=== PATIENT | male | born 1965 ===

== ENCOUNTER 2021-04-09 15:10 | Inpatient (IN) | payer OTHER ==
[~2021-04-09] VITALS: Ht 177.8 cm; Wt 93.4 kg
[2021-04-09 17:55] LABS: Basophils # (auto) 0 10 ^3/uL (0-0.2); Basophils % (auto) 0.4 % (0.0-2.0); Eosinophils # (auto) 0 10 ^3/uL (0-0.8); Eosinophils % (auto) 0.6 % (0.0-7.0); Hematocrit 40.1 % (41.0-53.0); Hemoglobin 14.1 g/dL (13.5-17.5); Lymphocytes # (auto) 1.7 10 ^3/uL (0.4-5.4); Lymphocytes % (auto) 19.3 % (10.0-50.0); Mean Corpuscular Hemoglobin 32.1 pg (28.0-32.0); Mean Corpuscular Hgb Conc. 35.1 g/dL (32.0-36.0); Mean Corpuscular Volume 91.5 fL (80.0-100.0); Monocytes # (auto) 0.9 10 ^3/uL (0-1.3); Monocytes % (auto) 10.1 % (0.0-12.0); Neutrophils # (auto) 6.2 10 ^3/uL (1.6-8.6); Neutrophils % (auto) 69.6 % (37.0-80.0); Nucleated Red Blood Cells % 0.1 %; Red Blood Cells 4.38 10^6/uL (4.5-5.90); Red Cell Distribution Width 13.4 % (11.8-14.3); White Blood Cell 8.9 10^3/uL (4.4-10.8)
[2021-04-09 18:10] LABS: Albumin 3.7 g/dL (3.4-5.0); BUN/Creatinine Ratio 19.3; Calcium 8.4 mg/dL (8.5-10.1); Potassium 3.7 mmol/L (3.5-5.1)
[2021-04-09 18:13] LABS: Bilirubin, Total 0.8 mg/dL (0.2-1.0); Total Protein 6.8 g/dL (6.4-8.2)
[2021-04-09] MEDS ORDERED: NITROGLYCERIN 0.4 MG SL TAB SL PRN (20:30)
[2021-04-09] MEDS ORDERED: MORPHINE SULFATE INJECTION 2 MG/ML SYRG IV PRN (20:30)
[2021-04-09] MEDS: HYDROcodone-ACET 10/325MG TAB PO PRN (21:18)
[2021-04-09 23:29] VITALS: BP 126/58
[2021-04-09 23:30] VITALS: BP 126/58
[2021-04-10] MEDS: HYDROcodone-ACET 10/325MG TAB PO PRN ×2 (01:26→22:15)
[2021-04-10 02:10] LABS: Basophils # (auto) 0.1 10 ^3/uL (0-0.2); Basophils % (auto) 0.8 % (0.0-2.0); Eosinophils # (auto) 0.1 10 ^3/uL (0-0.8); Eosinophils % (auto) 1.4 % (0.0-7.0); Hemoglobin 14.3 g/dL (13.5-17.5); Lymphocytes # (auto) 2.2 10 ^3/uL (0.4-5.4); Lymphocytes % (auto) 25.2 % (10.0-50.0); Mean Corpuscular Hemoglobin 31.6 pg (28.0-32.0); Mean Corpuscular Hgb Conc. 34.1 g/dL (32.0-36.0); Mean Corpuscular Volume 92.7 fL (80.0-100.0); Monocytes # (auto) 0.8 10 ^3/uL (0-1.3); Monocytes % (auto) 9.2 % (0.0-12.0); Neutrophils # (auto) 5.5 10 ^3/uL (1.6-8.6); Neutrophils % (auto) 63.4 % (37.0-80.0); Red Blood Cells 4.53 10^6/uL (4.5-5.90); Red Cell Distribution Width 13.8 % (11.8-14.3); White Blood Cell 8.7 10^3/uL (4.4-10.8)
[2021-04-10 02:28] LABS: INR 1.04 (0.9-1.15); Partial Thromboplastin Time 28.8 sec (23.6-33.0)
[2021-04-10 05:29] VITALS: BP 122/73
[2021-04-10 08:00] VITALS: BP 119/61
[2021-04-10] MEDS ORDERED: ceFAZolin 2 GM in D5W 5% 100 ML IV ONE (09:00)
[2021-04-10] MEDS ORDERED: IOHEXOL 300 MG/ML 100ML BOTTLE IJ ONE (10:30)
[2021-04-10] MEDS ORDERED: LIDOCAINE 2% JELLY 11ml (GLYDO) ONE (10:30)
[2021-04-10 10:39] LABS: Urine WBC None Seen /hpf (0 - 3)
[2021-04-10 11:19] LABS: Urine Bacteria NONE SEEN /hpf (None Seen); Urine Blood Negative /uL (Negative); Urine Specific Gravity 1.015 (1.001-1.035)
[2021-04-10] MEDS ORDERED: METOCLOPRAMIDE HCL 5MG/ml INJ 2ml VIAL IV PRN (12:15)
[2021-04-10] MEDS ORDERED: HYDROmorphone HCL 2 MG/ML VL IV PRN (12:15)
[2021-04-10] MEDS ORDERED: MORPHINE SULFATE 4 MG/ML SYR/VIAL IV PRN (12:15)
[2021-04-10] MEDS ORDERED: SODIUM CHLORIDE LOCK 10 ML ONE (12:16)
[2021-04-10] MEDS ORDERED: fentaNYL CITRATE 100 MCG/2 ML VL ONE (12:16)
[2021-04-10] MEDS ORDERED: ONDANSETRON HCL 4 MG/2 ML VIAL ONE (12:16)
[2021-04-10] MEDS ORDERED: MIDAZOLAM HCL 2MG/2ML 2ml VIAL (1mg/ml) ONE (12:16)
[2021-04-10] MEDS ORDERED: PROPOFOL 10 MG/ML 20 ML IV ONE (12:16)
[2021-04-10] MEDS ORDERED: DexAMETHasone SOD PHOS 10MG/1ML VIAL INJ ONE (12:50)
[2021-04-10] MEDS ORDERED: LIDOCAINE 1% HCL (LOCAL ANESTH.) INJ 20ML MDV ONE (12:56)
[2021-04-10 16:00] VITALS: BP 106/50
[2021-04-10 20:00] VITALS: BP 105/52
[2021-04-10 22:00] VITALS: BP 119/41
[2021-04-10] MEDS: ceFAZolin 1GM/50ML 50 ML IV SCH (22:14)
[2021-04-11 05:00] VITALS: BP 105/64
[2021-04-11] MEDS: ceFAZolin 1GM/50ML 50 ML IV SCH (05:47)
[2021-04-11 09:00] VITALS: BP 138/54
[2021-04-11 13:00] VITALS: BP 106/56
[2021-04-11 15:20] VITALS: BP 106/56
== END 2021-04-11 15:55 | DRG 710 ==
LOC: ER 15:10 → EEVIPCON 15:10 → OVERFLOW 20:16 → WEST WING 22:15
PROVIDERS: ADMIT Internal Medicine; ATTEND Internal Medicine
PROC: 0TJB8ZZ Inspection of Bladder, Via Natural or Artificial Opening Endoscopic (ICD-10-PCS; 2021-04-10)
PROC: 0VCS0ZZ Extirpation of Matter from Penis, Open Approach (ICD-10-PCS; principal; 2021-04-10 12:32)
DX: T19.4XXA Foreign body in penis, initial encounter (principal); N48.22 Cellulitis of corpus cavernosum and penis; Z20.822 Contact with and (suspected) exposure to COVID-19; Y99.8 Other external cause status; X58.XXXA Exposure to other specified factors, initial encounter; Y92.89 Other specified places as the place of occurrence of the external cause; Y93.89 Activity, other specified
CPT/HCPCS: 36415; 71045; 72192; 80053; 81001; 85025; 85610; 85730; 87426; 96365; G0378; J0690; J1100; J2001; J2250; J2405; J2704; J7060

== ENCOUNTER 2021-04-23 17:56 | Inpatient (IN) | payer OTHER ==
[~2021-04-23] VITALS: Ht 177.8 cm; Wt 92.9 kg
[2021-04-23] MEDS ORDERED: PIPERACILLIN-TAZOB 3.375GM 100 ML IV ONE (18:45)
[2021-04-23] MEDS ORDERED: VANCOMYCIN 1GM/250ML 250 ML IV ONE (18:45)
[2021-04-23 19:19] LABS: Basophils # (auto) 0.1 10 ^3/uL (0-0.2); Basophils % (auto) 0.7 % (0.0-2.0); Eosinophils # (auto) 0 10 ^3/uL (0-0.8); Eosinophils % (auto) 0.5 % (0.0-7.0); Hematocrit 40.5 % (41.0-53.0); Hemoglobin 14.1 g/dL (13.5-17.5); Lymphocytes # (auto) 1.4 10 ^3/uL (0.4-5.4); Mean Corpuscular Hemoglobin 31.9 pg (28.0-32.0); Mean Corpuscular Hgb Conc. 34.8 g/dL (32.0-36.0); Mean Corpuscular Volume 91.6 fL (80.0-100.0); Monocytes # (auto) 0.6 10 ^3/uL (0-1.3); Monocytes % (auto) 7.4 % (0.0-12.0); Neutrophils # (auto) 6.2 10 ^3/uL (1.6-8.6); Neutrophils % (auto) 74.4 % (37.0-80.0); Nucleated Red Blood Cells % 0.3 %; Red Blood Cells 4.42 10^6/uL (4.5-5.90); Red Cell Distribution Width 13.8 % (11.8-14.3); White Blood Cell 8.4 10^3/uL (4.4-10.8)
[2021-04-23 19:34] LABS: Albumin 3.8 g/dL (3.4-5.0); BUN/Creatinine Ratio 14.3; Calcium 9.3 mg/dL (8.5-10.1); Potassium 4.2 mmol/L (3.5-5.1)
[2021-04-23 19:51] LABS: Bilirubin, Total 0.6 mg/dL (0.2-1.0); Total Protein 7.7 g/dL (6.4-8.2)
[2021-04-23 19:51] LABS: Urine Bacteria NONE SEEN /hpf (None Seen); Urine Blood Negative /uL (Negative); Urine Mucus FEW (None Seen); Urine Specific Gravity 1.033 (1.001-1.035); Urine WBC 1 /hpf (0 - 3)
[2021-04-23] MEDS ORDERED: ONDANSETRON HCL 4 MG/2 ML VIAL IV PRN (21:15)
[2021-04-23] MEDS ORDERED: VANCOMYCIN PER PHARMACY 0 MG IV SCH (21:15)
[2021-04-24 01:14] VITALS: BP 112/61
[2021-04-24] MEDS: PIPERACILLIN-TAZOB 3.375GM 100 ML IV SCH ×3 (03:32→19:00)
[2021-04-24 05:00] VITALS: BP 100/51
[2021-04-24 05:10] LABS: Basophils # (auto) 0 10 ^3/uL (0-0.2); Basophils % (auto) 0.4 % (0.0-2.0); Eosinophils # (auto) 0.1 10 ^3/uL (0-0.8); Eosinophils % (auto) 1.7 % (0.0-7.0); Hematocrit 37.8 % (41.0-53.0); Hemoglobin 13.3 g/dL (13.5-17.5); Lymphocytes # (auto) 1.6 10 ^3/uL (0.4-5.4); Lymphocytes % (auto) 24.7 % (10.0-50.0); Mean Corpuscular Hemoglobin 32.2 pg (28.0-32.0); Mean Corpuscular Hgb Conc. 35.3 g/dL (32.0-36.0); Mean Corpuscular Volume 91.2 fL (80.0-100.0); Monocytes # (auto) 0.6 10 ^3/uL (0-1.3); Neutrophils # (auto) 4.3 10 ^3/uL (1.6-8.6); Neutrophils % (auto) 64.2 % (37.0-80.0); Nucleated Red Blood Cells % 0.1 %; Red Blood Cells 4.14 10^6/uL (4.5-5.90); Red Cell Distribution Width 13.3 % (11.8-14.3); White Blood Cell 6.6 10^3/uL (4.4-10.8)
[2021-04-24 05:24] LABS: INR 1.02 (0.9-1.15); Partial Thromboplastin Time 28.9 sec (23.6-33.0)
[2021-04-24 05:31] LABS: Albumin 3.3 g/dL (3.4-5.0); BUN/Creatinine Ratio 14.6; Calcium 8.8 mg/dL (8.5-10.1); Potassium 4.2 mmol/L (3.5-5.1)
[2021-04-24 05:34] LABS: Bilirubin, Total 0.6 mg/dL (0.2-1.0); Total Protein 6.7 g/dL (6.4-8.2)
[2021-04-24] MEDS: VANCOMYCIN 1GM/250ML 250 ML IV SCH ×2 (06:55→16:00)
[2021-04-24 08:00] VITALS: BP 124/62
[2021-04-24] MEDS: ENOXAPARIN SOD 40 MG/0.4 ML SYRINGE SC SCH (10:00)
[2021-04-24 17:00] VITALS: BP 127/70
[2021-04-24] MEDS: HYDROcodone-ACET 10/325MG TAB PO PRN (22:09)
[2021-04-24 22:29] VITALS: BP 109/55
[2021-04-25] MEDS: VANCOMYCIN 1GM/250ML 250 ML IV SCH ×4 (02:27→22:07)
[2021-04-25] MEDS: HYDROcodone-ACET 10/325MG TAB PO PRN ×3 (02:28→21:24)
[2021-04-25] MEDS: PIPERACILLIN-TAZOB 3.375GM 100 ML IV SCH ×3 (03:28→19:06)
[2021-04-25 05:00] VITALS: BP 103/68
[2021-04-25 09:00] VITALS: BP 110/61
[2021-04-25 09:01] LABS: BUN/Creatinine Ratio 15.5; Potassium 3.8 mmol/L (3.5-5.1)
[2021-04-25] MEDS: ENOXAPARIN SOD 40 MG/0.4 ML SYRINGE SC SCH (10:00)
[2021-04-25 12:46] VITALS: BP 105/59
[2021-04-25 16:45] VITALS: BP 103/50
[2021-04-25 22:00] VITALS: BP 113/52
[2021-04-26] MEDS: PIPERACILLIN-TAZOB 3.375GM 100 ML IV SCH (03:32)
[2021-04-26 05:00] VITALS: BP 109/58
[2021-04-26 09:00] VITALS: BP 117/55
[2021-04-26] MEDS: ENOXAPARIN SOD 40 MG/0.4 ML SYRINGE SC SCH (10:00)
[2021-04-26] MEDS ORDERED: EPINEPHrine HCL 1 MG/1 ML AMP ONE (10:55)
[2021-04-26] MEDS ORDERED: LIDOCAINE 1% HCL (LOCAL ANESTH.) INJ 20ML MDV ONE (10:55)
[2021-04-26] MEDS ORDERED: NEOMYCIN-BACITRACIN-POLYM 15GM TOP OINT TOP ONE (11:00)
[2021-04-26] MEDS ORDERED: ceFAZolin 1GM/50ML 100 ML IV ONE (11:11)
[2021-04-26] MEDS ORDERED: PROPOFOL 10 MG/ML 20 ML IV ONE ×2 (11:18→12:00)
[2021-04-26] MEDS ORDERED: LIDOCAINE 2% (LOCAL ANESTH.) PF 5ml SDV ONE (11:18)
[2021-04-26] MEDS ORDERED: ONDANSETRON HCL 4 MG/2 ML VIAL ONE (11:18)
[2021-04-26] MEDS ORDERED: MIDAZOLAM HCL 2MG/2ML 2ml VIAL (1mg/ml) ONE (11:24)
[2021-04-26] MEDS ORDERED: fentaNYL CITRATE 100 MCG/2 ML VL ONE (11:24)
[2021-04-26] MEDS ORDERED: ePHEDrine SULFATE 50 MG/ML AMP IV ONE (12:00)
[2021-04-26] MEDS ORDERED: ROCURONIUM 10MG/ML 10ML VIAL IV ONE (12:00)
[2021-04-26] MEDS ORDERED: HYDROmorphone HCL 2 MG/ML VL ONE (12:40)
[2021-04-26] MEDS: HYDROmorphone HCL 2 MG/ML VL IV PRN ×2 (12:45→13:00)
[2021-04-26] MEDS ORDERED: SUCCINYLCHOLINE CHLORIDE 20 MG/ML 10ML VIAL IV ONE (12:45)
[2021-04-26] MEDS ORDERED: HYDROmorphone HCL 2 MG/ML VL IV PRN (12:45)
[2021-04-26] MEDS ORDERED: ONDANSETRON HCL 4 MG/2 ML VIAL IV PRN (12:45)
[2021-04-26 13:00] VITALS: BP 103/53
[2021-04-26] MEDS: ceFAZolin 1GM/50ML 50 ML IV SCH ×2 (14:00→21:54)
[2021-04-26 16:55] VITALS: BP 106/52
[2021-04-26] MEDS: VANCOMYCIN 1GM/250ML 250 ML IV SCH (18:00)
[2021-04-26] MEDS: HYDROcodone-ACET 10/325MG TAB PO PRN ×2 (18:50→23:21)
[2021-04-26 23:49] VITALS: BP 104/56
[2021-04-27] MEDS: VANCOMYCIN 1GM/250ML 250 ML IV SCH ×2 (04:25→14:00)
[2021-04-27] MEDS: HYDROcodone-ACET 10/325MG TAB PO PRN (04:26)
[2021-04-27 05:26] VITALS: BP 105/47
[2021-04-27] MEDS: ceFAZolin 1GM/50ML 50 ML IV SCH ×3 (05:40→21:56)
[2021-04-27 09:10] VITALS: BP 105/49
[2021-04-27] MEDS: ENOXAPARIN SOD 40 MG/0.4 ML SYRINGE SC SCH (10:00)
[2021-04-27 14:20] VITALS: BP 104/58
[2021-04-27 16:42] VITALS: BP 116/54
[2021-04-27 22:00] VITALS: BP 115/68
[2021-04-28 00:56] VITALS: BP 115/68
[2021-04-28] MEDS: VANCOMYCIN 1GM/250ML 250 ML IV SCH ×4 (01:04→20:50)
[2021-04-28] MEDS: HYDROcodone-ACET 10/325MG TAB PO PRN ×3 (01:44→21:15)
[2021-04-28 05:00] VITALS: BP 99/59
[2021-04-28 09:00] VITALS: BP 100/61
[2021-04-28] MEDS: ENOXAPARIN SOD 40 MG/0.4 ML SYRINGE SC SCH (10:00)
[2021-04-28 13:00] VITALS: BP 121/65
[2021-04-28] MEDS: ceFAZolin 1GM/50ML 50 ML IV SCH ×2 (14:00→22:42)
[2021-04-28 17:00] VITALS: BP 106/62
[2021-04-28 21:49] VITALS: BP 121/64
[2021-04-29] MEDS: HYDROcodone-ACET 10/325MG TAB PO PRN (02:39)
[2021-04-29 05:00] VITALS: BP 102/52
[2021-04-29 06:09] LABS: Basophils # (auto) 0 10 ^3/uL (0-0.2); Basophils % (auto) 0.5 % (0.0-2.0); Eosinophils # (auto) 0.2 10 ^3/uL (0-0.8); Eosinophils % (auto) 3.2 % (0.0-7.0); Hematocrit 40.2 % (41.0-53.0); Lymphocytes # (auto) 1.9 10 ^3/uL (0.4-5.4); Lymphocytes % (auto) 27.7 % (10.0-50.0); Mean Corpuscular Hemoglobin 31.8 pg (28.0-32.0); Mean Corpuscular Hgb Conc. 34.7 g/dL (32.0-36.0); Mean Corpuscular Volume 91.5 fL (80.0-100.0); Monocytes # (auto) 0.7 10 ^3/uL (0-1.3); Monocytes % (auto) 9.8 % (0.0-12.0); Neutrophils % (auto) 58.8 % (37.0-80.0); Nucleated Red Blood Cells % 0.2 %; Red Blood Cells 4.39 10^6/uL (4.5-5.90); Red Cell Distribution Width 13.2 % (11.8-14.3); White Blood Cell 6.8 10^3/uL (4.4-10.8)
[2021-04-29 06:17] LABS: Calcium 9.3 mg/dL (8.5-10.1); Potassium 4.6 mmol/L (3.5-5.1)
[2021-04-29] MEDS: ceFAZolin 1GM/50ML 50 ML IV SCH (07:18)
[2021-04-29] MEDS: VANCOMYCIN 1GM/250ML 250 ML IV SCH (07:18)
[2021-04-29 09:00] VITALS: BP 104/57
[2021-04-29] MEDS: ENOXAPARIN SOD 40 MG/0.4 ML SYRINGE SC SCH (09:33)
[2021-04-29] MEDS ORDERED: CIPR500T4 PO (11:58)
[2021-04-29 13:00] VITALS: BP 118/65
[2021-04-29] MEDS ORDERED: VANCOMYCIN 1GM/250ML 250 ML IV SCH (20:00)
== END 2021-04-29 16:42 | DRG 729 ==
LOC: ER 18:07 → EEVIPCON 18:07 → OVERFLOW 21:11 → WEST WING 23:36
PROVIDERS: ADMIT Internal Medicine; ATTEND Internal Medicine
PROC: 0VCSXZZ Extirpation of Matter from Penis, External Approach (ICD-10-PCS; 2021-04-26)
PROC: 0VTTXZZ Resection of Prepuce, External Approach (ICD-10-PCS; principal; 2021-04-26 11:23)
DX: T19.4XXA Foreign body in penis, initial encounter (principal); T81.40XA Infection following a procedure, unspecified, initial encounter; T81.30XA Disruption of wound, unspecified, initial encounter; N48.22 Cellulitis of corpus cavernosum and penis; Z20.822 Contact with and (suspected) exposure to COVID-19; N47.1 Phimosis; Y93.89 Activity, other specified; Y92.89 Other specified places as the place of occurrence of the external cause; Y99.8 Other external cause status
CPT/HCPCS: 36415; 74176; 80048; 80053; 80202; 81001; 85025; 85610; 85730; 87081; 87205; 87426; 96365; 96367; 96372; G0378; J0171; J0330; J0690; J2001; J2250; J2405; J2543; J2704